=== PATIENT | male | born 1990 | race African-American/Black ===

== ENCOUNTER 2016-11-22 21:30 | Emergency (ER) | payer OTHER ==
--- NOTE | ~2016-11-22 | CT4 ---
[facility] A Service [facility] RADIOLOGY TEXT RESULTS PATIENT: JUAN VEGA LOCATION: [facility] : [birth year] UNIT #: [id number] AGE: [address]: Oskar Don DO SEX: M ORDER DR: [id number] [address] [place], [place] [address] [id number] E MR#: [id number] Acc #: [id number] NAME: JUAN VEGA : 1990 SEX: M STUDY DATE/TIME: 11/22/2016 23:40 UNIT: [facility] ROOM: STUDY DESCRIPTION: CT Abd and Pelv Wo Cont Attending Physician: Oskar Don D.O. Ordering Physician: Oskar Don D.O. Primary Care Physician: [facility] MEDICAL IMAGING REPORT This report is preliminary unless electronic signature is present EXAM CT abdomen and pelvis INDICATION Right-sided abdominal pain radiating into the right inguinal region and right testicle for [address] of the abdomen and pelvis without contrast. Coronal and sagittal reconstructions were obtained. This CT exam was performed with one or more of the following radiation dose reduction techniques: automatic exposure control, adjustment of mA and/or kV according to patient size, and iterative reconstruction. COMPARISON Scrotal ultrasound obtained the same day. FINDINGS ABDOMEN: Noncontrast evaluation of the solid abdominal organs are within normal limits. Gallbladder is not distended. The bowel is not dilated. The appendix is normal. The abdominal aorta is normal in caliber. PELVIS: No pelvic mass or free pelvic fluid. Bladder is unremarkable. No enlarged pelvic or inguinal lymph nodes. No acute osseous abnormalities. IMPRESSION No acute findings in the abdomen or pelvis. No urinary calculi. [facility] A Service [facility] RADIOLOGY TEXT RESULTS PATIENT: JUAN VEGA LOCATION: [facility] : [birth year] UNIT #: [id number] AGE: [address]: Oskar Don DO SEX: M ORDER DR: Dictated by... Rigoberto P. Kam, M.D. THIS IS AN ELECTRONICALLY VERIFIED REPORT Rigoberto Humphrey M.D. at 11/23/2016 1:22 AM ARLETTE/apolinar TD: 11/23/2016 00:46 JOB #: [id number] MEDICAL IMAGING REPORT Page 1 of 1 COPY
--- NOTE | ~2016-11-22 | US115 ---
[facility] A Service of [facility] RADIOLOGY TEXT RESULTS PATIENT: JUAN VEGA LOCATION: [facility] : [birth year] UNIT #: [id number] AGE: [address]: Oskar Don DO SEX: M ORDER DR: [id number] [facility] [address] [place], [place] [address] [id number] E MR#: [id number] Acc #: [id number] NAME: JUAN VEGA : 1990 SEX: M STUDY DATE/TIME: 11/22/2016 23:16 UNIT: [facility] ROOM: STUDY DESCRIPTION: US Scrotum and Contents Attending Physician: Oskar Don D.O. Ordering Physician: Oskar Don D.O. Primary Care Physician: [facility] MEDICAL IMAGING REPORT This report is preliminary unless electronic signature is present EXAM Testicular ultrasound INDICATIONS Right-sided testicular pain for 1 day. COMPARISON None available. FINDINGS The right testicle measures 4.6 cm x 3.6 cm x 2.2 cm. There is diffusely increased vascularity throughout the testicle. No testicular mass. The right epididymis is enlarged and diffusely hypervascular. There is a small right hydrocele. The left testicle measures 5.3 cm x 2.6 cm x 3.0 cm. Echogenicity echotexture of the left testicle is within normal limits. Vascularity within the left testicle is normal. IMPRESSION Hypervascular right epididymis and right testicle consistent with an epididymal orchitis. Dictated by... Rigoberto Humphrey M.D. THIS IS AN ELECTRONICALLY VERIFIED REPORT Rigoberto Humphrey M.D. at 11/23/2016 1:22 AM ARLETTE/apolinar TD: 11/23/2016 00:31 [facility] A Service of [facility] RADIOLOGY TEXT RESULTS PATIENT: JUAN VEGA LOCATION: [facility] : 86 UNIT #: [id number] AGE: [address]: Oskar Don DO SEX: M ORDER DR: JOB #: [id number] MEDICAL IMAGING REPORT Page 1 of 1 COPY
[~2016-11-22 21:30] MED LIST: IBUPROFEN800 MG PO
[2016-11-23 00:50] LABS: BASOPHIL# 0.1 X10e3 (0-0.3); BASOPHIL% 0.7 % (0-2.5); DIFF IND YES; EOSINOPHIL# 0.2 X10e3 (0-0.7); HEMATOCRIT 44.5 % (38.0-50.0); HEMOGLOBIN 14.6 gm/dL (13.0-16.0); LYMPHOCYTE# 2.6 X10e3 (1.0-3.5); LYMPHOCYTE% 13.6 % (17.0-45.0); MEAN CELL VOLUME 81.2 FL (83-96); MEAN CORPUSCULAR HEMOGLOBIN 26.6 PG (28-34); MEAN CORPUSCULAR HGB CONC 32.8 g/dL (30-36); MEAN PLATELET VOLUME 7.4 FL (6.5-11.5); MONOCYTE# 1.1 X10e3 (0-1.0); MONOCYTE% 6.1 % (3.0-12.0); NEUTROPHIL# 14.9 X10e3 (1.5-7.1); NEUTROPHIL% 78.6 % (40-75); PLATELET COUNT 408 X10e3 (140-420); RED BLOOD COUNT 5.48 X10e (3.90-5.60); RED CELL DISTRIBUTION WIDTH 14.1 % (11.0-15.5)
[2016-11-23 00:55] LABS: URINE SOURCE CLEAN CATCH
[2016-11-23 00:58] LABS: URINE APPEARANCE CLEAR; URINE BILIRUBIN NEG (NEG); URINE BLOOD TRACE (NEG); URINE COLOR YELLOW; URINE GLUCOSE NEG (NEG); URINE KETONE NEG (NEG); URINE LEUKOCYTE ESTERASE 3+ (NEG); URINE NITRATE NEG (NEG); URINE PH 5.5 (5-8); URINE PROTEIN NEG (NEG); URINE SPECIFIC GRAVITY 1.018 (1.003-1.035); URINE UROBILINOGEN 0.2 MG/DL (NEG)
[2016-11-23 01:00] LABS: CULTURE INDICATED? YES; URBCS1 AUWI 0-2 /[HPF] (0-2); URINE BACTERIA AUWI NEG (NEGATIVE); URINE SQUAMOUS EPITHELIAL CELL NONE SEEN /[HPF]; UWBCS1 AUWI 100-200 (0-5)
[2016-11-23 01:08] LABS: URINE MUCUS PRESENT
[2016-11-23 01:10] LABS: ALBUMIN SERUM 4.5 g/dL (3.5-5.0); BILIRUBIN, DIRECT 0.1 mg/dL (0.0-0.2); BILIRUBIN,INDIRECT 0.4 mg/dL (0.0-0.9); BILIRUBIN,TOTAL 0.5 mg/dL (0.2-2.0); BUN/CREATININE RATIO 7.5; CALCIUM SERUM 9.2 mg/dL (8.4-10.2); CREATININE SERUM 1.2 mg/dL (0.6-1.4); GLOM FILT RATE Estimated 94.8 mL/min (>60); POTASSIUM 3.6 mmol/L (3.5-5.1); PROTEIN TOTAL SERUM 7.6 g/dL (6.0-8.3)
[2016-11-23 01:11] LABS: PLATELET ESTIMATE NORMAL (NORMAL); RBC NORMAL YES
[2016-11-25 10:09] LABS: CHLAMYDIA TRACH Detected (Not Detected); N GONOR Not Detected (Not Detected)
== END 2016-11-23 02:06 | disposition home or self-care (01) ==
LOC: CED 21:30
PROVIDERS: Emergency Medicine
DX: N45.3 Epididymo-orchitis (principal); I10 Essential (primary) hypertension; F17.200 Nicotine dependence, unspecified, uncomplicated
CPT/HCPCS: 36415; 74176; 76870; 80048; 80076; 81003; 85025; 87086; 87491; 87591; 96365; 96375; 99284; J0696; J1885